=== PATIENT | female | born 1955 | race Two or more races ===

== ENCOUNTER 2018-05-23 13:50 | Emergency (ER) ==
[2018-05-23 13:55] VITALS: BP 151/73; TEMP 98.1; BMI 23.6
--- NOTE | 2018-05-23 14:26 | ED.PDOC ---
General ED Provider: Dr. AUDRA JOSE Chief Complaint: Respiratory Complaint Stated Complaint: Cough and congeston, fever and chills. Cough productive of greenish brown sputums Time Seen by Physician: 14:10 Mode of Arrival: Walk-In Information Source: Patient Exam Limitations: No limitations Primary Care Provider: CAS MARTÍNEZ Nursing and Triage Documentation Reviewed and Agree: Yes Does patient meet sepsis criteria?: No System Inflammatory Response Syndrome: Not Applicable Sepsis Protocol: For patient's 13 years and over: Temp is 96.8 and below OR 101 and greater Pulse >90 BPM Resp >20/minute Acutely Altered Mental Status Are patient's symptoms suggestive of a new infection, such as: -Pneumonia -Skin, Soft Tissue -Endocarditis -UTI -Bone, Joint Infection -Implantable Device -Acute Abdominal Infection -Wound Infection -Meningitis -Blood Stream Catheter Infection -Unknown Review of Systems - Review Of Systems Constitutional: Reports: Chills Eyes: Reports: No symptoms Ears, Nose, Mouth, Throat: Reports: No symptoms Respiratory: Reports: Cough, Wheezing Cardiac: Reports: No symptoms GI: Reports: No symptoms : Reports: No symptoms Musculoskeletal: Reports: No symptoms Skin: Reports: No symptoms Neurological: Reports: No symptoms Endocrine: Reports: No symptoms Hematologic/Lymphatic: Reports: No symptoms All Other Systems: Reviewed and Negative Past Medical History - Past Medical History Endocrine: Reports: DM 2, Hypothyroid, Dyslipidemia Cardiovascular: Reports: Hypertension Respiratory: Reports: COPD Hematological: Reports: None Gastrointestinal: Reports: GERD Genitourinary: Reports: None Neuro/Psych: Reports: Anxiety, Depression Musculoskeletal: Reports: Arthritis, Back Pain, Joint Pain Cancer: Reports: None Last Menstrual Period: N/A - Surgical History General Surgical History: Reports: None - Family History Family History: Reports: Hypertension, Diabetes - Social History Smoking Status: Current every day smoker Hx Substance Use: No Alcohol Screening: Occasionally - Immunizations Tetanus Shot up to Date: No (04/14/07) Physical Exam - Physical Exam Appearance: Ill-appearing, Thin Ill-appearing: Mild Pain Distress: None Eyes: DINORA, EOMI, Conjunctiva clear ENT: Ears normal, Nose normal, Oropharynx normal Neck: Supple Respiratory: Airway patent, Breath sounds clear, Breath sounds equal, Respirations nonlabored, Wheezes Cardiovascular: RRR, Pulses normal, No rub, No murmur GI/: Soft, Nontender, No masses, Bowel sounds normal, No Organomegaly Musculoskeletal: Normal strength Neurological: Sensation intact, Motor intact, Reflexes intact, Cranial nerves intact, Alert, Oriented Psychiatric: Affect appropriate Critical Care Note - Critical Care Note Total Time (mins): 30 Course - Course Hematology/Chemistry: 05/23/18 14:50 05/23/18 14:50 Orders, Labs, Meds: Lab Review 05/23/18 05/23/18 05/23/18 14:29 14:33 14:42 WBC RBC Hgb Hct MCV MCH MCHC RDW Coeff of Ana Laura Plt Count Neutrophils % (Manual) Band Neutrophils % Lymphocytes % (Manual) Monocytes % (Manual) Eosinophils % (Manual) Reactive Lymphocytes Plt Morphology Comment Anisocytosis RBC Morph Comment Puncture Site R radial O2 Saturation 94.0 L ABG pH 7.361 ABG pCO2 39.2 ABG pO2 74.0 L ABG HCO3 22.3 ABG Total CO2 24 ABG Base Excess -3 L Mj Test + FiO2 % 21.0 Sodium Potassium Chloride Carbon Dioxide Anion Gap BUN Creatinine Estimated GFR (MDRD) BUN/Creatinine Ratio Glucose Lactic Acid Calcium Total Bilirubin AST ALT Alkaline Phosphatase Troponin I Total Protein Albumin Globulin Albumin/Globulin Ratio Procalcitonin TSH Urine Color Yellow Urine Clarity Clear Urine pH 6.5 Ur Specific [place] 1.015 Urine Protein 1+ Urine Glucose (UA) Negative Urine Ketones Negative Urine Blood Negative Urine Nitrite Negative Urine Bilirubin Negative Urine Urobilinogen 0.2 Ur Leukocyte Esterase 1+ Urine Microscopic WBC 0-2 Ur Squamous Epith Cells 0-2 Urine Bacteria 1+ Urine Mucus 1+ Influ A Molecular Assay Positive by naat H Influ B Molecular Assay Negative by naat RSV Antigen 05/23/18 05/23/18 05/23/18 14:50 14:50 14:50 WBC 6.83 RBC 3.86 L Hgb 12.5 Hct 36.0 L MCV 93.3 MCH 32.4 H MCHC 34.7 RDW Coeff of Ana Laura 12.3 Plt Count 233 Neutrophils % (Manual) 50.0 Band Neutrophils % 1.0 Lymphocytes % (Manual) 31.0 Monocytes % (Manual) 11.0 H Eosinophils % (Manual) 1.0 Reactive Lymphocytes 6.0 H Plt Morphology Comment Normal Anisocytosis Not present RBC Morph Comment Normal Puncture Site O2 Saturation ABG pH ABG pCO2 ABG pO2 ABG HCO3 ABG Total CO2 ABG Base Excess Mj Test FiO2 % Sodium 140.5 Potassium 3.13 L Chloride 103.9 Carbon Dioxide 25.2 Anion Gap 14.53 BUN 12.6 Creatinine 0.67 Estimated GFR (MDRD) 89.00 BUN/Creatinine Ratio 18.80 Glucose 126.9 H Lactic Acid Calcium 9.24 Total Bilirubin 0.42 AST 40.5 H ALT 53.6 H Alkaline Phosphatase 117.5 Troponin I < 0.012 Total Protein 7.89 Albumin 4.35 Globulin 3.54 Albumin/Globulin Ratio 1.22 Procalcitonin < 0.05 TSH Pending Urine Color Urine Clarity Urine pH Ur Specific [place] Urine Protein Urine Glucose (UA) Urine Ketones Urine Blood Urine Nitrite Urine Bilirubin Urine Urobilinogen Ur Leukocyte Esterase Urine Microscopic WBC Ur Squamous Epith Cells Urine Bacteria Urine Mucus Influ A Molecular Assay Influ B Molecular Assay RSV Antigen 05/23/18 05/23/18 14:50 14:50 WBC RBC Hgb Hct MCV MCH MCHC RDW Coeff of Ana Laura Plt Count Neutrophils % (Manual) Band Neutrophils % Lymphocytes % (Manual) Monocytes % (Manual) Eosinophils % (Manual) Reactive Lymphocytes Plt Morphology Comment Anisocytosis RBC Morph Comment Puncture Site O2 Saturation ABG pH ABG pCO2 ABG pO2 ABG HCO3 ABG Total CO2 ABG Base Excess Mj Test FiO2 % Sodium Potassium Chloride Carbon Dioxide Anion Gap BUN Creatinine Estimated GFR (MDRD) BUN/Creatinine Ratio Glucose Lactic Acid 1.18 Calcium Total Bilirubin AST ALT Alkaline Phosphatase Troponin I Total Protein Albumin Globulin Albumin/Globulin Ratio Procalcitonin TSH Urine Color Urine Clarity Urine pH Ur Specific [place] Urine Protein Urine Glucose (UA) Urine Ketones Urine Blood Urine Nitrite Urine Bilirubin Urine Urobilinogen Ur Leukocyte Esterase Urine Microscopic WBC Ur Squamous Epith Cells Urine Bacteria Urine Mucus Influ A Molecular Assay Influ B Molecular Assay RSV Antigen Negative by naat Orders Category Date Time Status ABG DRAW REQUEST Stat CARDIO 05/23/18 14:31 Ordered EKG-(ED ONLY) Stat CARDIO 05/23/18 14:33 Ordered NEBULIZER TREATMENT Stat CARDIO 05/23/18 14:28 Ordered ABG Stat LAB 05/23/18 14:29 Completed CBC W/ AUTO DIFF Stat LAB 05/23/18 14:50 Completed CMP [COMPREHENSIVE METABOLIC PANEL] Stat LAB 05/23/18 14:50 Results FLU A & B MOLECULAR [FLU A/B MOLECULAR] Stat LAB 05/23/18 14:42 Completed LACTIC ACID Stat LAB 05/23/18 14:50 Completed MANUAL DIFFERENTIAL Stat LAB 05/23/18 14:50 Completed PROCALCITONIN Stat LAB 05/23/18 14:50 Completed RAPID STREP SCREEN [MOLECULAR GROUP A STREP] Stat LAB 05/23/18 14:42 Completed RSV Stat LAB 05/23/18 14:50 Completed SPUTUM CULTURE Stat LAB 05/23/18 14:33 Uncollected THYROID STIMULATING HORMONE Stat LAB 05/23/18 14:50 Results TROPONIN I Stat LAB 05/23/18 14:50 Results UA [URINALYSIS C & S IF INDICATED] Stat LAB 05/23/18 14:33 Completed URINE CULTURE Stat LAB 05/23/18 14:33 Received Albuterol Sulfate 0.083% Neb [Albuterol 0.083% Neb] MEDS 05/23/18 14:27 Discontinued 1 vial NEB ONCE STA Budesonide [Pulmicort 0.5 mg/2 ml] MEDS 05/23/18 14:27 Discontinued 1 vial NEB ONCE STA Ipratropium [place] 0.02% Neb [Atrovent 0.02% Neb] MEDS 05/23/18 14:27 Discontinued 1 vial NEB ONCE STA CHEST, 2 VIEWS PA & LAT Stat RADS 05/23/18 14:29 Completed Medications Discontinued Medications Generic Name Dose Route Start Last Admin Trade Name Freq PRN Reason Stop Dose Admin Albuterol Sulfate 1 vial 05/23/18 14:27 05/23/18 15:04 Albuterol 0.083% Neb NEB 05/23/18 14:28 1 vial ONCE STA Administration Budesonide 1 vial 05/23/18 14:27 05/23/18 15:02 Pulmicort 0.5 Mg/2 Ml NEB 05/23/18 14:28 1 vial ONCE STA Administration Ipratropium [place] 1 vial 05/23/18 14:27 05/23/18 15:03 Atrovent 0.02% Neb NEB 05/23/18 14:28 1 vial ONCE STA Administration Vital Signs: Temp Pulse Resp BP Pulse Ox 05/23/18 13:51 98.1 F 89 20 151/73 H 98 Departure - Departure Time of Disposition: 15:30 Disposition: HOME SELF-CARE Discharge Problem: Influenza A (H1N1) Condition: Fair Pt referred to PMD for follow-up: Yes (1 wk) IPMP verified?: No Additional Instructions: Take all meds Stay well hydrated Use home nebs -respiratory meds. If worsens return to ER Prescriptions: Oseltamivir Phosphate [Tamiflu] 75 mg PO Q12HR #10 capsule Allergies/Adverse Reactions: Allergies atorvastatin Adverse Reaction (Verified 05/23/18 14:01) Influenza Virus Vaccines Adverse Reaction (Verified 05/23/18 14:01) Penicillins Adverse Reaction (Verified 05/23/18 14:01) Sulfa (Sulfonamide Antibiotics) Adverse Reaction (Verified 05/23/18 14:01) venlafaxine Adverse Reaction (Verified 05/23/18 14:01) Home Medications: Ambulatory Orders Albuterol Sulfate [Proair Hfa] 2 puff IH Q6H 05/23/18 Aspirin 81 mg PO DAILY 05/23/18 Buspirone HCl 10 mg PO TID 05/23/18 Duloxetine HCl [Cymbalta] 60 mg PO BID 05/23/18 Ergocalciferol (Vitamin D2) [Vitamin D2] 50,000 unit PO DIRECTED 05/23/18 Insulin Aspart [Novolog Flexpen] 0 unit SQ DIRECTED 05/23/18 Insulin Glargine,Hum.rec.anlog [Basaglar Kwikpen U-100] 15 unit SQ DIRECTED 05/23/18 Insulin Lispro [Humalog Kwikpen] 0 unit SQ DIRECTED 05/23/18 Levothyroxine Sodium [Synthroid] 25 mcg PO DIRECTED 05/23/18 Linagliptin [Tradjenta] 5 mg PO DAILY 05/23/18 Omeprazole [Prilosec] 20 mg PO QDAC 05/23/18 Oseltamivir Phosphate [Tamiflu] 75 mg PO Q12HR #10 capsule 05/23/18 Pregabalin [Lyrica] 225 mg PO BID 05/23/18 Promethazine HCl 12.5 mg PO Q6H PRN 05/23/18 Ranitidine HCl 150 mg PO BID 05/23/18 Sertraline HCl 150 mg PO DAILY 05/23/18 Thyroid,Pork [[place] Thyroid] 90 mg PO DAILY 05/23/18 Topiramate [Topamax] 100 mg PO BID 05/23/18 Trazodone HCl 200 mg PO BEDTIME 05/23/18 Ubidecarenone/Vit E Acet [Co Q-10 100 mg Softgel] 1 each PO TID 05/23/18 Vit B6/Me-Thfolate/Me-B12/Ala [Podiapn Capsule] 1 each PO DAILY 05/23/18
[2018-05-23] MEDS ORDERED: PULMICORT 0.5 MG/2 ML NEB STA (14:27)
[2018-05-23] MEDS ORDERED: ATROVENT 0.02% NEB NEB STA (14:27)
[2018-05-23] MEDS ORDERED: ALBUTEROL 0.083% NEB NEB STA (14:27)
--- NOTE | 2018-05-23 15:18 | DI ---
EXAM: PA and lateral views of the chest HISTORY: Cough and congestion COMPARISON: None FINDINGS: The cardiomediastinal silhouette is normal. There is no pneumothorax or pleural effusion. There is no consolidation, nodule or mass. The osseous structures are unremarkable. Surgical clip s are noted in the right upper abdomen. IMPRESSION: No acute cardiopulmonary process
== END 2018-05-23 15:44 | disposition home or self-care (01) ==
LOC: ED 13:50
DX: J11.1 Influenza due to unidentified influenza virus with other respiratory manifestations (principal); F17.210 Nicotine dependence, cigarettes, uncomplicated; E11.9 Type 2 diabetes mellitus without complications; E03.9 Hypothyroidism, unspecified; E78.5 Hyperlipidemia, unspecified; I10 Essential (primary) hypertension; Z79.899 Other long term (current) drug therapy
CPT/HCPCS: 36415; 80053; 81001; 82803; 83605; 84145; 84443; 84484; 85007; 85025; 87086; 87502; 87651; 87801; 93005; 93010; 94640; 99283